=== PATIENT | male | born 1970 | race Two or more races ===

== ENCOUNTER 2020-03-15 15:58 | Emergency (ER) | payer BC ==
[~2020-03-15] VITALS: Ht 172.7 cm; Wt 79.4 kg
--- NOTE | 2020-03-15 16:08 | NUR ---
ED Nurse Note: PT walked in to ed for c/o pain with swelling to right foot x 1 week. pt denies any recent injury or fall.
[2020-03-15 16:09] VITALS: BP 122/71
--- NOTE | 2020-03-15 16:20 | NUR ---
ED Nurse Note: urine sample collected and sent to lab
--- NOTE | 2020-03-15 16:25 | NUR ---
ED Nurse Note: x ray being taken at bedside.
--- NOTE | 2020-03-15 16:32 | NUR ---
ED Nurse Note: pt taken to ct via w/c accompanied by radiology receptionist
--- NOTE | 2020-03-15 16:55 | Diagnostic Imaging Report ---
Indication: Right foot pain Technique: 3 views right foot Comparison: none Findings: There is a small osteophyte coming off the base of the third middle phalanx. No acute fractures. No dislocations. Joint spaces are preserved. Impression: No acute process
--- NOTE | 2020-03-15 16:58 | Diagnostic Imaging Report ---
Indication: Left hip pain Technique: Noncontrast spiral acquisitions obtained through the pelvis. Multiplanar reconstructions generated. Total dose length product 223 mGycm. CTDIvol(s) 6 mGy. Dose reduction achieved using automated exposure control Comparison: none Findings: There is degenerative narrowing of the left hip joint, with large subchondral cysts, particularly on the acetabular side, as well as sizable osteophytes. No acute fractures. No dislocations. The right hip joint space is preserved. The included pelvic viscera are unremarkable. There is no evidence of soft tissue contusion. Impression: Advanced degenerative changes of the left hip No acute bony trauma The CT scanner at [facility] is accredited by the [employer] and the scans are performed using protocols designed to limit radiation exposure to as low as reasonably achievable to attain images of sufficient resolution adequate for diagnostic evaluation.
--- NOTE | 2020-03-15 17:00 | NUR ---
ED Nurse Note: back from ct
--- NOTE | 2020-03-15 17:32 | Emergency Room Report ---
History of Present Illness General Chief Complaint: Edema Source: Patient Present Illness HPI 49-year-old male with no known significant past medical history reports quit smoking years ago here complaining 1 week of right foot pain worsening in the morning upon waking up. Patient reports that he often walks a lot. Denies any fall or injury. Denies any puncture wound to the foot. Reported the pain is in the bottom of his foot and feels better after walking. Has not taken medication for symptom relief. Also complains of left hip pain and reports that it has been ongoing for several months but does not recall the following history. Denies any saddle paresthesia, urinary or bowel incontinence. Denies any tingling or numbness. Denies chest pain, calf tenderness, shortness of breath, headache or dizziness. Patient is neurovascularly intact and has full strength of all extremities. 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 COVID-19 Screening: Negative COVID-19 COVID-19 Testing Source: in january/ Patient History Past Medical History: see triage record Past Surgical History: none Pertinent Family History: none Social History: Reports: smoking Immunizations: UTD Reviewed Nursing Documentation: PMH: Agreed; PSxH: Agreed Nursing Documentation-PMH Past Medical History: No Stated History Review of Systems All Other Systems: negative except mentioned in HPI Physical Exam Vital Signs Date Time Temp Pulse Resp B/P (MAP) Pulse Ox O2 Delivery O2 Flow Rate FiO2 03/15/20 16:03 98.4 87 18 122/71 (88) 94 Room Air Sp02 EP Interpretation: reviewed, normal General Appearance: no apparent distress, alert, GCS 15, non-toxic Head: normocephalic, atraumatic Eyes: bilateral eye normal inspection, bilateral eye PERRL ENT: hearing grossly normal, normal pharynx, no angioedema, normal voice Neck: full range of motion, supple/symm/no masses Respiratory: chest non-tender, lungs clear, normal breath sounds, speaking full sentences Cardiovascular #1: regular rate, rhythm, no edema Cardiovascular #2: 2+ dorsalis pedis (R), 2+ dorsalis pedis (L) Gastrointestinal: normal bowel sounds, non tender, soft, non-distended, no guarding, no rebound Rectal: deferred Genitourinary: no CVA tenderness Musculoskeletal: back normal, no calf tenderness, pelvis stable Neurologic: alert, motor strength/tone normal, oriented x3, sensory intact, responsive, speech normal Psychiatric: judgement/insight normal, memory normal, mood/affect normal, no suicidal/homicidal ideation Skin: no rash Lymphatic: no adenopathy Medical Decision Making PA Attestation All diagnosis and treatment plans were discussed and reviewed by my supervising physician Dr. Fowler Diagnostic Impression: Primary Impression: Plantar fasciitis Additional Impression: Arthritis ER Course 49-year-old male with no known significant past medical history reports quit smoking years ago here complaining 1 week of right foot pain worsening in the morning upon waking up. Patient reports that he often walks a lot. Denies any fall or injury. Denies any puncture wound to the foot. Reported the pain is in the bottom of his foot and feels better after walking. Has not taken medication for symptom relief. Also complains of left hip pain and reports that it has been ongoing for several months but does not recall the following history. Denies any saddle paresthesia, urinary or bowel incontinence. Denies any tingling or numbness. Denies chest pain, calf tenderness, shortness of breath, headache or dizziness. Patient is neurovascularly intact and has full strength of all extremities. Ddx considered but are not limited to: foot fracture, foot sprain, foot contusion, foot strain, arthritis, hip sprain versus strain versus fracture Vital signs: are WNL, pt. is afebrile H&PE are most consistent with: Plantar fasciitis, arthritis ORDERS: foot Xray, pelvic CT noncontrast, Motrin, Voltaren gel ED INTERVENTIONS: None required at this time. DISCHARGE: At this time pt. is stable for d/c to home. Will provide printed patient care instructions, and any necessary prescriptions. Care plan and follow up instructions have been discussed with the patient prior to discharge. Advised patient take medication as directed, follow with primary care provider physical therapy made to be recommended upon request of primary doctor. If worsening symptoms return to emergency room. Also avoid bearing flip-flops and shoes. Elevate legs. Also follow-up with transportation aid. Other X-Ray Diagnostic Results Other X-Ray Diagnostic Results : X-Ray ordered: right foot # of Views/Limited Vs Complete: 3 View Indication: Pain EP Interpretation: Yes RENZO Xray: Interpretation reviewed, by supervising MD, and agrees with findings. Interpretation: no dislocation, no soft tissue swelling, no fractures Impression: No acute disease Electronically Signed by: Elham Nunez PA-C CT/MRI/US Diagnostic Results CT/MRI/US Diagnostic Results : Imaging Test Ordered: CT pelvis no contrast Impression Within normal limits, degenerative changes noted Comparison: none Findings: There is degenerative narrowing of the left hip joint, with large subchondral cysts, particularly on the acetabular side, as well as sizable osteophytes. No acute fractures. No dislocations. The right hip joint space is preserved. The included pelvic viscera are unremarkable. There is no evidence of soft tissue contusion. Impression: Advanced degenerative changes of the left hip No acute bony trauma Last Vital Signs Date Time Temp Pulse Resp B/P (MAP) Pulse Ox O2 Delivery O2 Flow Rate FiO2 03/15/20 16:09 87 18 Room Air 03/15/20 16:09 98.4 122/71 94 Disposition: HOME, SELF-CARE Condition: Stable Scripts Diclofenac Sodium (VOLTAREN) 100 Gm Gel..gram. 2 GM TP TID, #100 GM Prov: Elham Whittington 03/15/20 Ibuprofen* (MOTRIN*) 600 Mg Tablet 600 MG ORAL Q6H PRN for For Pain, #30 TAB 0 Refills Prov: Elham Whittington 03/15/20 Referrals: [facility],REFERRING (PCP) Patient Instructions: Arthritis, [id number], Plantar Fasciitis With Rehab- [facility] Additional Instructions: Take medication as directed, follow-up with your primary care provider, if worsening symptoms return to the emergency room Elham Whittington Mar 15, 2020 17:32
[2020-03-15] MEDS ORDERED: IBUPROFEN600 M1 ORAL (17:34)
[2020-03-15] MEDS ORDERED: VOLTAREN100 G1 TP (17:34)
[2020-03-15 17:38] VITALS: BP 128/75
--- NOTE | 2020-03-15 17:38 | NUR ---
ER DISCHARGE NOTE: Patient is cleared to be discharged per ERMD, pt is aox4, on room air, with stable vital signs. pt was given dc and prescription instructions, pt was able to verbalize understanding, pt id band removed without complications. pt is able to ambulate with steady gait. pt took all belongings.
== END 2020-03-15 17:38 | disposition home or self-care (01) ==
LOC: EMR 16:20
DX: M72.2 Plantar fascial fibromatosis (principal); M19.90 Unspecified osteoarthritis, unspecified site; Z87.891 Personal history of nicotine dependence
CPT/HCPCS: 72192; 99284